=== PATIENT | female | born 1995 | race Caucasian/White ===

== ENCOUNTER 2020-04-11 20:00 | Emergency (ER) | payer BC, SELFPAY ==
[2020-04-11 20:08] VITALS: BP 129/59; PULSE 107; RESP 16; TEMP 36.8; O2SAT 99; BMI 35.5
[2020-04-11 20:10] VITALS: BP 129/59; PULSE 107; RESP 16; TEMP 36.8; O2SAT 99; BMI 35.3
--- NOTE | 2020-04-11 20:20 | HMH.EDUTC ---
[facility] [place] Disposition Clinical Impression: Strep throat, Petechial rash Disposition: Home, Self-Care Condition on Discharge: Good Instructions: DI for Strep Throat, DI for Petechiae Additional Instructions: Start antibiotics today be sure to take it as ordered with the full length of time although you should start feeling better in 24-48 hours. Change toothbrush and toothpaste 24-48 hours after starting antibiotics Tylenol or Motrin as needed for fever or pain Encourage fluids, water, Gatorade, Powerade, try cold fluids, popsicles, ice cream will make it feel better You are contagious for 24 hours. Avoid kissing anyone, no eating or drinking after anyone. You are contagious. Follow-up the ER for new or worsening symptoms or no noticeable improvement over the next 24-48 hours. Follow-up with PCP this week. Prescriptions: Azithromycin [Zithromax 250mg tab] 250 mg PO DIRECTED 4 Days #4 tab Prescription Printed Referrals: PCP,No [Primary Care Provider] - Forms: Work/School Release Time of Disposition: 20:39 Medical Decision Making - Ajay Inquiry Pt receiving controlled substance: No Vital Signs: 04/11/20 20:08 04/11/20 20:10 Temperature 98.2 F 98.2 F Temperature Source Oral Oral Pulse Rate [Left Radial] 107 H 107 H Respiratory Rate 16 16 Blood Pressure [Right Arm] 129/59 L 129/59 L Blood Pressure Mean [Right Arm] 82 82 Blood Pressure Source [Right Arm] Automatic Cuff Automatic Cuff Blood Pressure Position [Right Arm] Sitting Sitting 02 Sat by Pulse Oximetry 99 99 Oxygen Delivery Method Room Air Room Air - Lab Data Lab Results 04/11/20 20:29: Strep Scn Rapid Clinic Positive A - Physician Consults Physician Consulted: dangelo Time: 20:36 Reason -: Other Comment/Response: at bedside looking at rash, agrees peti rash [facility] [place] HPI - General Chief complaint: Urgent Treatment Center Stated complaint: Rash Time Seen by Provider: 04/11/20 20:20 Mode of Arrival: Ambulatory Source of Information: Patient Limitations: No Limitations Description of Symptoms (Recalled from Triage Doc. by RN): PATIENT C/O RED RASH TO FACE AND NECK THAT SHE NOTICED THIS MORNING. SHE REPORTS SHE TRIED NEW LIPSTICK AND EYESHADOW LAST NIGHT. DENIES SOA HEENT Symptoms (Recalled from RN notes): No Resp Symptoms (Recalled from RN notes): No Skin Symptoms (Recalled from RN notes): Yes MS Symptoms (Recalled from RN notes): No Functional Status (Recalled from RN notes): WNL - History of Present Illness Provider Complaint: 24 yr old female presents for a rash to her face and neck. Pt states her eyes are burning and her throat hurts to palpate. pt states she was drinking alot last pm and was throwing up alot for 3 hours. but is unsure of why rash. denies fever pt states only thing new was she tried a new eye shadow and lip stick last night - Related Data Previous Rx's Medication Instructions Recorded Azithromycin [Zithromax 250mg 250 mg PO DIRECTED 4 Days #4 tab 04/11/20 tab] Allergies Allergy/AdvReac Type Severity Reaction Status Date / Time No Known Allergies Allergy Verified 06/17/18 14:34 - Worker's Comp Is this a Worker's Comp case?: No [facility] History - Hepatitis A Screen Drug use history?: No High risk sexual behaviors?: No History of sexually transmitted infection?: No Currently employed?: No Childcare worker?: No Do you have indoor plumbing?: Yes Do you have electricity?: Yes Attestation statement:: This patient has been screened for Hepatitis A risk factors. I have reviewed the patient's past medical history: Yes Other Surgeries: Yes: No Previous Surgery Amputation: No Fractures: No - Social History Smoking Status: Never smoker Alcohol Intake: never Substance Use Type: denies use Occupational Status: other Family Hx:: No significant family history ROS Obtained: Yes Systems reviewed as appropriate & no additional complaints - Constitutional Constitutional: Reports system revi
[2020-04-11 20:30] LABS: UTC Strep Screen (Rapid) Positive (Negative)
[2020-04-11 20:44] VITALS: BP 129/59; PULSE 107; RESP 16; TEMP 36.8; O2SAT 99
== END 2020-04-11 20:45 | disposition home or self-care (01) ==
PROVIDERS: Emergency Provider Nurse Practitioner Family
DX: J02.0 Streptococcal pharyngitis (principal)
CPT/HCPCS: 87880; 99201

== ENCOUNTER 2021-09-26 11:53 | Emergency (ER) | payer BC, SELFPAY ==
[2021-09-26 12:22] VITALS: BP 130/85; PULSE 87; RESP 16; TEMP 37.1; O2SAT 100; BMI 37.1
[2021-09-26 13:38] VITALS: BP 159/91; PULSE 115; RESP 19; TEMP 37.1; O2SAT 95; BMI 35.5
[2021-09-26 14:00] LABS: UTC Pregnancy Test, Urine Negative (Negative)
[2021-09-26 14:00] LABS: UTC Influenza A Antigen Positive (Negative)
[2021-09-26 14:01] LABS: UTC Influenza B Antigen Negative (Negative)
[2021-09-26 14:04] LABS: Strep Scrn Group A (Rapid) Negative (Negative)
--- NOTE | 2021-09-26 14:11 | HMH.EDUTC ---
[facility] [place] Disposition Clinical Impression: Influenza Disposition: Home, Self-Care Condition on Discharge: Good Instructions: Influenza, DI for Influenza -- Adult, Oseltamivir Additional Instructions: ? Start Tamiflu today if you are going to take it. Discussed risk and possible benefits. ? Lots of rest ? Increase Fluids water, Gatorade, powerade, pedialyte,if /toddler/child ? Alternate Tylenol and / or ibuprofen as discussed for fever, aches, chills Follow up IMMEDIATELY with your family doctor for new or worsening Symptoms OR no noticeable improvement over the next 48-72 hours, 911 for difficulty or breathing ? You or your child area contagious until no fever, aches, chills for 24 hours with medication for symptoms ? Help Prevent the spread of influenza: ? Wash your hands often. Use soap and water. Wash your hands after you use the bathroom, change a child's diapers, or sneeze. Wash your hands before you prepare or eat food. Use gel hand cleanser that has 60% alcohol, when soap and water are not available. Do not touch your eyes, nose, or mouth unless you have washed your hands first. ? Cover your mouth when you sneeze or cough. Cough into a tissue or the bend of your arm. If you use a tissue, throw it away immediately and wash your hands. ? Clean shared items with a germ-killing globe cleaner. Clean table surfaces, doorknobs, and light switches. Do not share towels, silverware, and dishes with people who are sick. Wash bed sheets, towels, silverware, and dishes with soap and water. ? Wear a mask over your mouth and nose if you are sick. The face mask may help protect others from becoming infected with the flu. Wear the mask when in common areas of your home or if you seek care with a healthcare provider. ? Stay away from others if you are sick. Stay at home until 24 hours after your fever and symptoms are gone. Prescriptions: Brompheniramine/Pseudoephed/Dm [Bromfed Dm Cough Syrup] 5 - 10 ml PO Q4-6H PRN #200 ml PRN Reason: Cough Transmission Status: Pending to [facility] #[id number] Oseltamivir Phosphate [Tamiflu 75mg Capsule] 75 mg PO BID #10 cap Transmission Status: Pending to [facility] #[id number] Referrals: Raymundo Crain MD [Primary Care Provider] - As needed Forms: Work/School Release Time of Disposition: 14:18 Medical Decision Making - Ajay Inquiry Pt receiving controlled substance: No Ajay was queried for this patient: No Vital Signs: 09/26/21 12:22 09/26/21 13:38 Temperature 98.8 F 98.8 F Temperature Source Oral Oral Pulse Rate [Right] 87 115 H Respiratory Rate 16 19 Blood Pressure [Right Arm] 130/85 159/91 H Blood Pressure Mean [Right Arm] 100 113 Blood Pressure Source [Right Arm] Automatic Cuff Automatic Cuff Blood Pressure Position [Right Arm] Sitting Sitting 02 Sat by Pulse Oximetry 100 95 Oxygen Delivery Method Room Air Room Air - Lab Data Lab results reviewed: Yes: I reviewed the patient's lab results. Lab Results 09/26/21 13:32: Group A Strep Rapid Negative 09/26/21 13:36: Influenza Type A Ag Positive A, Influenza Type B Ag Negative 09/26/21 13:43: Tst Clinic Negative Orders (Tests/Meds): ORDERS Category Date Time Status Strep Screen Confirmation Stat Micro 09/26/21 13:32 Received [facility] [place] HPI - General Stated complaint: sore throat, drainage, sneezing, cough Time Seen by Provider: 09/26/21 14:11 Mode of Arrival: Ambulatory Source of Information: Patient Limitations: No Limitations Description of Symptoms (Recalled from Triage Doc. by RN): Pt stated that her throat hurts, nasal drainage, sneezing, and fever last night. HEENT Symptoms (Recalled from RN notes): Yes Resp Symptoms (Recalled from RN notes): No Skin Symptoms (Recalled from RN notes): No MS Symptoms (Recalled from RN notes): No Functional Status (Recalled from RN notes): n/a - History of Present Illness Provider Complaint: Patient states that she didnt feel well on Sunday but las
[2021-09-26 14:23] VITALS: BP 159/91; PULSE 115; RESP 19; TEMP 37.1; O2SAT 95
== END 2021-09-26 14:23 | disposition home or self-care (01) ==
LOC: ER 12:13 → UTC 12:14
PROVIDERS: Emergency Provider Nurse Practitioner; PCP Emergency Medicine
DX: J10.1 Influenza due to other identified influenza virus with other respiratory manifestations (principal)
CPT/HCPCS: 81025; 87430; 87804; 99212; G0463

== ENCOUNTER 2021-11-17 19:11 | Emergency (ER) | payer BC, SELFPAY ==
[2021-11-17 19:20] VITALS: BP 128/87; PULSE 91; RESP 18; TEMP 36.6; O2SAT 97; BMI 35.5
--- NOTE | 2021-11-17 19:30 | HMH.EDUTC ---
[facility] [place] [facility] [place] Clinical Impression: Yeast infection involving the vagina and surrounding area Disposition: Home, Self-Care Condition on Discharge: Good Instructions: DI for Vaginal Yeast Infection Additional Instructions: if no improvement follow up with pcp or market research intern if worsens return or be seen in ed medication as ordered cool wash cloth to area keep area clean and dry Prescriptions: Fluconazole [Diflucan 100mg tablet] 100 mg PO ONCE #1 tab Transmission Status: Pending to [id number] Referrals: Provider,Referral, MD [Primary Care Provider] - Time of Disposition: 19:41 Medical Decision Making - Ajay Inquiry Pt receiving controlled substance: No Vital Signs: 11/17/21 19:20 11/17/21 19:33 Temperature 97.9 F 97.9 F Temperature Source Oral Pulse Rate 91 H Pulse Rate [Right Brachial] 91 H Respiratory Rate 18 18 Blood Pressure 128/87 Blood Pressure [Right Arm] 128/87 Blood Pressure Mean [Right Arm] 100 Blood Pressure Source [Right Arm] Automatic Cuff Blood Pressure Position [Right Arm] Sitting 02 Sat by Pulse Oximetry 97 Oxygen Delivery Method Room Air [facility] [place] [facility] [place] HPI - General Chief complaint: Urgent Treatment Center Stated complaint: pOSSIBLE YEAST INFECTION Time Seen by Provider: 11/17/21 19:30 Mode of Arrival: Ambulatory Source of Information: Patient Limitations: No Limitations Description of Symptoms (Recalled from Triage Doc. by RN): PATIENT C/O ITCHING AND SWELLING TO VAGINAL AREA SINCE YESTERDAY HEENT Symptoms (Recalled from RN notes): No Resp Symptoms (Recalled from RN notes): No Skin Symptoms (Recalled from RN notes): No MS Symptoms (Recalled from RN notes): No Functional Status (Recalled from RN notes): WNL - History of Present Illness Provider Complaint: 25 yr old female presents for itching, thick white discharge and swelling to outside of the vagina. no new sex partners been in a relationship with the same person for over 8 yrs - Related Data Previous Rx's Medication Instructions Recorded Fluconazole [Diflucan 100mg tablet] 100 mg PO ONCE #1 tab 11/17/21 Allergies Allergy/AdvReac Type Severity Reaction Status Date / Time No Known Allergies Allergy Verified 09/26/21 13:38 - Worker's Comp Is this a Worker's Comp case?: No [facility] History - Hepatitis A Screen Attestation statement:: This patient has been screened for Hepatitis A risk factors. I have reviewed the patient's past medical history: Yes Other Surgeries: Yes: No Previous Surgery Amputation: No Fractures: No - Social History Smoking Status: Never smoker Alcohol Intake: never Substance Use Type: denies use Occupational Status: other Family Hx:: No significant family history ROS Obtained: Yes Systems reviewed as appropriate & no additional complaints - Constitutional Constitutional: Reports system reviewed and no additional complaints, except as docu, Denies fever(s) - Eyes Eyes: Reports system reviewed and no additional complaints, except as docu, Denies dry eyes - ENT Ears, Nose, Mouth, and Throat: Reports system reviewed and no additional complaints, except as docu, Denies sore throat - Cardiovascular Cardiovascular: Reports system reviewed and no additional complaints, except as docu, Denies chest pain - Respiratory Respiratory: Reports system reviewed and no additional complaints, except as docu, Denies change in phlegm color - Gastrointestinal Gastrointestingal: Reports: system reviewed and no additional complaints, except as docu. Denies: abdominal pain - Genitourinary Female Genitourinary: Reports system reviewed and no additional complaints, except as docu, Reports vaginal discharge, Reports vaginal itching - Musculoskeletal Musculoskeletal: Reports system reviewed and no additional complaints, except as docu, Denies abnormal gait - Integumentary/Breasts Skin/Breast: Reports system reviewed and no additional complaints, except as docu, Denies rash - Neurologic
[2021-11-17 19:33] VITALS: BP 128/87; PULSE 91; RESP 18; TEMP 36.6; O2SAT 97
[2021-11-17 19:40] LABS: UTC Pregnancy Test, Urine Negative (Negative)
== END 2021-11-17 19:45 | disposition home or self-care (01) ==
PROVIDERS: Emergency Provider Nurse Practitioner Family
DX: B37.9 Candidiasis, unspecified (principal); Z79.51 Long term (current) use of inhaled steroids
CPT/HCPCS: 81025; 99213; G0463

== ENCOUNTER → 2022-06-15 15:49 | Outpatient (CLI) | payer BC, SELFPAY ==
[2022-06-17 08:52] LABS: HSV 1 IgG, Type Spec <0.91 index (0.00-0.90); HSV 2 IgG, Type Spec <0.91 index (0.00-0.90)
[2022-06-17 10:10] LABS: Rapid Plasma Reagin Ab Titer Non Reactive (NonRea<1:1)
[2022-06-20 21:48] LABS: HIV Screen 4th Generation wRfx NON REACTIVE; Hep A Ab, IgM NEGATIVE
[2022-06-20 21:49] LABS: Hepatitis B Core Antibody IgM NEGATIVE; Hepatitis B Surface Antigen NEGATIVE; Hepatitis C Antibody <0.1
== END ==
PROVIDERS: Visit Provider Obstetrics & Gynecology
DX: Z72.51 High risk heterosexual behavior (principal)
CPT/HCPCS: 36415; 80074; 86593; 86695; 86703; 86790; G0432

== ENCOUNTER 2022-07-20 15:58 | Emergency (ER) | payer BC, SELFPAY ==
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
[2022-07-20 16:29] LABS: UTC Strep Screen (Rapid) Positive (Negative)
[2022-07-20 16:31] VITALS: BP 139/77; PULSE 66; RESP 18; TEMP 37; O2SAT 97; BMI 60.4
[2022-07-20 16:36] VITALS: BP 139/77; PULSE 66; RESP 18; TEMP 37; O2SAT 97
== END 2022-07-20 16:48 | disposition home or self-care (01) ==
PROVIDERS: Emergency Provider Nurse Practitioner Family
DX: J02.0 Streptococcal pharyngitis (principal)
CPT/HCPCS: 87880; 99212; 99213; G0463

== ENCOUNTER 2023-10-29 01:10 | Emergency (ER) | payer OTHER, SELFPAY ==
[2023-10-29 01:11] VITALS: BP 129/75; PULSE 91; RESP 18; TEMP 36.8; O2SAT 96; BMI 38.2
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
--- NOTE | 2023-10-29 01:20 | PC.NURSE ---
Seizure pads placed due to pt thrashing
--- NOTE | 2023-10-29 02:17 | PC.NURSE ---
ambulated patient to bathroom with 1x standby assist. Patient was able to ambulate adequately and tolerated well. Walked back to bed, and TRN repositioned patient to comfort.
[2023-10-29] MEDS: LACTATED RINGERS 1000ML 1,000 ML 999 ML IV (02:45)
[2023-10-29] MEDS: ONDANSETRON 4MG/2ML VIAL 4 MG IV (02:49)
[2023-10-29 04:12] VITALS: BP 122/67; PULSE 94; RESP 16; TEMP 36.9; O2SAT 95
== END 2023-10-29 04:14 | disposition home or self-care (01) ==
PROVIDERS: Emergency Provider Emergency Medicine
DX: F10.921 Alcohol use, unspecified with intoxication delirium (principal); F17.210 Nicotine dependence, cigarettes, uncomplicated
CPT/HCPCS: 96361; 96374; 99284; J2405; J7120

== ENCOUNTER 2024-12-08 11:25 | Emergency (ER) | payer OTHER, SELFPAY ==
[2024-12-08 11:37] LABS: Microscopic, Urine URINE MICROSCOPIC (MICROSCOPIC)
[2024-12-08 11:39] LABS: Bilirubin,Urine Negative (Negative); Color,Urine YELLOW (Yellow); Glucose,Urine (UA) Negative (Negative); Ketones,Urine Negative (Negative); Leukocyte Esterase,Urine Negative (Negative); PH,Urine 6.0 (5.0-8.5); Protein,Urine Negative (Negative); Specific Gravity, Urine 1.015 (1.005-1.030); Urobilinogen,Urine 0.2 EU/dl (0.2)
[2024-12-08 11:42] LABS: Urine Pregnancy, HCG Qual. Negative (Negative)
--- NOTE | 2024-12-08 11:55 | US_ITS ---
PROCEDURE INFORMATION: Exam: US Pelvis, Transvaginal, Non-Obstetric Exam date and time: 12/08/2024 12:01 PM Age: 28 years old Clinical indication: Pelvic pain TECHNIQUE: Imaging protocol: Real-time transvaginal pelvic (non-obstetric) ultrasound with image documentation. Transvaginal imaging was used for better evaluation of the endometrium, adnexa, and/or cervix. COMPARISON: No relevant prior studies available. FINDINGS: Uterus: Uterus is normal. Endometrial stripe is normal and measures about 1 cm in thickness. Right ovary/adnexa: Normal. No solid mass. There is a 2.3 cm right ovarian cyst. Normal ovarian blood flow on color Doppler. No suggestion of torsion. Left ovary/adnexa: Normal. No mass. Normal ovarian blood flow on color Doppler. No suggestion of torsion. Urinary bladder: Urinary bladder is limited. Intraperitoneal space: Trace free fluid in the deep pelvis. IMPRESSION: 2.3 cm right ovarian cyst without evidence of ovarian torsion. Consider follow-up pelvic ultrasound in 6 weeks.
[2024-12-08 11:58] VITALS: BP 136/93; PULSE 88; RESP 16; TEMP 36.9; O2SAT 97; BMI 41.5
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
[2024-12-08 12:31] VITALS: BP 160/91; PULSE 78; RESP 16; TEMP 36.4; O2SAT 96
[2024-12-08] MEDS: KETOROLAC 30MG/ML VIAL 15 MG IV (12:33)
[2024-12-08] MEDS: ACETAMINOPHEN 500MG TAB 1000 MG PO (12:33)
[2024-12-08] MEDS: LACTATED RINGERS 1000ML 1,000 ML 999 ML IV (12:33)
[2024-12-08 12:38] LABS: Hematocrit 44.6 % (37.0-47.0); Hemoglobin 15.2 g/dL (12.2-16.2); Immature Granulocytes % 0.3 %; Mean Corpuscular HGB Conc 34.1 g/dL (31.8-35.4); Mean Corpuscular Hemoglobin 28.7 pg (27.0-31.2); Mean Corpuscular Volume 84.3 fl (81-99); Nucleated Red Blood Cells % 0 %; Platelet Count 422 K/mm3 (142-424); Red Blood Count 5.29 M/mm3 (4.20-5.40); Red Cell Distribution Width-SD 37.2 fL; White Blood Count 12.4 K/mm3 (4.8-10.8)
[2024-12-08 12:46] LABS: Alanine Aminotransferase 19 U/L (12-78); Albumin Level 4.8 g/dl (3.5-5.0); Albumin/Globulin Ratio 1.4 (1.1-1.8); Alkaline Phosphatase 75 U/L (38-126); Anion Gap 17.2 mEq/L (5-15); Aspartate Amino Transferase 22 U/L (14-36); Bilirubin,Total 0.5 mg/dl (0.2-1.3); Blood Urea Nitrogen 16 mg/dl (7-17); Calcium 9.1 mg/dl (8.4-10.2); Carbon Dioxide 25 mmol/L (22.0-30.0); Chloride 100 mmol/L (98-107); Creatinine Clearance Estimated 96 mL/min (50-200); Creatinine,Serum 0.80 mg/dl (0.52-1.04); Estimated Glomerular Filt Rate 87 ml/min (>60); GFR (African American) 105 ML/MIN (>60); Globulin 3.5 g/dL (1.3-3.2); Glucose 89 mg/dl (74-100); Potassium 4.2 mmoL/L (3.5-5.1); Sodium 138 mmol/L (136-145); Total Protein,Serum 8.3 g/dl (6.3-8.2)
[2024-12-08 13:01] VITALS: BP 143/117; PULSE 67; RESP 18; O2SAT 95
[2024-12-08 13:07] VITALS: BP 128/78; PULSE 71; O2SAT 98
--- NOTE | 2024-12-08 13:19 | PC.NURSE ---
pelvic exam at bedside by dr medina, no swabs sent and pt tolerated well
[2024-12-08 13:44] VITALS: BP 128/78; PULSE 78; RESP 18; TEMP 36.4; O2SAT 98
[2024-12-08] MEDS: OXYCODONE 5MG IMMEDIATE RELEASE TABLET 5 MG PO (13:45)
== END 2024-12-08 13:50 | disposition home or self-care (01) ==
PROVIDERS: Emergency Provider Emergency Medicine
DX: R10.2 Pelvic and perineal pain (principal); N76.0 Acute vaginitis; N83.201 Unspecified ovarian cyst, right side; N94.10 Unspecified dyspareunia
CPT/HCPCS: 76830; 80053; 81001; 81025; 85025; 87491; 87591; 87661; 96361; 96374; 99284; J1885; J7120